=== PATIENT | male | born 1955 | race Caucasian/White ===

== ENCOUNTER → 2018-02-19 | Outpatient (CLI) | payer BC, OTHER ==
[~2018-02-19] MED LIST: LEVO-366 PO; OXYC-57 PO; UNABLE
--- NOTE | 2018-02-19 13:04 | DIAGNOSTIC IMAGING REPORT ---
L KNEE 4 OR MORE CLINICAL HISTORY: LEFT KNEE PAIN pain COMPARISON: None. 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 Moderate degenerative change patellofemoral joint. There is no evidence for soft tissue swelling. IMPRESSION: Moderate degenerative change. No acute process. The above report was generated using voice recognition software. It may contain grammatical, syntax or spelling errors. Electronically signed by: Kd Avila M.D. 02/19/2018 1:03 PM Dictated Date/Time: 02/19/2018 1:00 PM
== END | disposition home or self-care (01) ==
LOC: C.RDSM 12:30
PROVIDERS: ATTEND Physician Assistant
DX: M25.562 Pain in left knee (principal)